=== PATIENT | female | born 1930 | race Caucasian/White ===

== ENCOUNTER 2018-12-22 14:16 | Inpatient (IN) | payer MEDICARE, OTHER ==
[~2018-12-22] VITALS: Ht 170.2 cm; Wt 62.6 kg
[2018-12-22] MEDS ORDERED: ASPI-605 PO (14:43)
[2018-12-22] MEDS ORDERED: CHOL100062 PO (14:43)
[2018-12-22] MEDS ORDERED: METO25TA3 PO (14:43)
[2018-12-22] MEDS ORDERED: DULO60CA45 PO (14:43)
[2018-12-22] MEDS ORDERED: MEMA14CA PO (14:43)
[2018-12-22 14:58] LABS: BASOPHILS # (AUTO) 0.1 K/uL (0.0-8.0); EOSINOPHILS # (AUTO) 0.3 K/uL (0.0-0.7); EOSINOPHILS % (AUTO) 3.8 % (0.0-7.0); HEMATOCRIT 35.1 % (31.2-41.9); HEMOGLOBIN 11.7 g/dL (10.9-14.3); LYMPHOCYTES # (AUTO) 1.3 K/uL (20.0-40.0); LYMPHOCYTES % (AUTO) 18.2 % (20.5-51.5); MEAN CORPUSCULAR HEMOGLOBIN 30.7 uug (24.7-32.8); MEAN CORPUSCULAR HGB CONC 33 g/dL (32.3-35.6); MEAN CORPUSCULAR VOLUME 92.4 fL (75.5-95.3); MONOCYTES # (AUTO) 1.1 K/uL (2.0-10.0); MONOCYTES % (AUTO) 15.1 % (0.0-11.0); NEUTROPHILS # (AUTO) 4.4 K/uL (1.8-8.9); NEUTROPHILS % (AUTO) 61.9 % (38.5-71.5); PLATELET COUNT (AUTO) 319 K/uL (179-408); RED BLOOD CELL COUNT(AUTO) 3.79 MIL/uL (3.63-4.92); WHITE BLOOD COUNT (AUTO) 7.1 K/uL (3.8-11.8)
--- NOTE | 2018-12-22 15:04 | NUR ---
PT IS IN ROOM #1A. DR LI EVALUATED THE PT.
[2018-12-22 15:07] LABS: CARBON DIOXIDE 27 mmol/L (21-32); CHLORIDE 105 mmol/L (98-107); CREATININE 1.5 mg/dL (0.6-1.3); GLUCOSE 87 mg/dL (74-106); POTASSIUM 3.7 mmol/L (3.5-5.1); UREA NITROGEN, BLOOD 33 mg/dL (7-18)
[2018-12-22 15:12] LABS: ALANINE AMINOTRANSFERASE 20 U/L (14-59); ALKALINE PHOSPHATASE 69 U/L (50-136); ASPARTATE AMINOTRANSFERASE 19 U/L (15-37); BILIRUBIN,DIRECT 0.2 mg/dL (0.0-0.2); BILIRUBIN,TOTAL 0.8 mg/dL (0.2-1.0); TOTAL PROTEIN, SERUM 6.7 g/dL (6.4-8.2)
[2018-12-22 15:13] LABS: ACETAMINOPHEN < 2.0 ug/mL (10-30)
[2018-12-22 15:15] LABS: ETHANOL < 3 MG/DL (0-0)
[2018-12-22 15:24] LABS: THYROID STIMULATING HORMONE 1.402 mIU/mL (0.358-3.740)
[2018-12-22 15:43] LABS: BAND % (MANUAL) 2 % (0-10); EOSINOPHILS % (MANUAL) 1 % (0-8); LYMPHOCYTES % (MANUAL) 19 % (20-40); MONOCYTES % (MANUAL) 15 % (2-10); NEUTROPHILS % (MANUAL) 63 % (42-75)
[2018-12-22 15:55] LABS: *BILIRUBIN,URIN NEGATIVE (NEGATIVE); *BLOOD, URINE NEGATIVE (NEGATIVE); *CLARITY,URINE CLEAR (CLEAR); *COLOR,URINE YELLOW (YELLOW); *KETONES,URINE NEGATIVE (NEGATIVE); *UROBILINOGEN,URINE 0.2 E.U./dl (NORMAL); LEUKOCYTE ESTERASE ,URINE NEGATIVE (NEGATIVE); NITRITE, URINE NEGATIVE (NEGATIVE); PH,URINE 5.5 (5.0-8.0); UGLUCOSE NEGATIVE (NEGATIVE)
[2018-12-22 16:01] LABS: *AMPHETAMINE, URINE NEGATIVE (NEGATIVE); *BARBITURATE, URINE NEGATIVE (NEGATIVE); *CANNABINOID, URINE NEGATIVE (NEGATIVE); *COCCAINE, URINE NEGATIVE (NEGATIVE); *OPIATE, URINE NEGATIVE (NEGATIVE); *PHENCYCLIDINE SCREEN,URINE NEGATIVE (NEGATIVE)
[2018-12-22 16:02] LABS: RBC,URINE 0-3 /HPF (0-3); WBC,URINE 0-3 /HPF (0-3)
[2018-12-22 16:03] LABS: MUCUS,URINE MODERATE /LPF (0-FEW)
[2018-12-22] MEDS ORDERED: IV NORMAL SALINE 500 ML BAG IV ONE (16:15)
--- NOTE | 2018-12-22 17:03 | NUR ---
Pt. admitted to TELE , under care of Dr. WEEKS Belongs List completed
--- NOTE | 2018-12-22 17:30 | NUR ---
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 PT WAS TRANSFERED TO ROOM #316.
[2018-12-22 17:48] VITALS: BP 108/51
--- NOTE | 2018-12-22 18:00 | NUR ---
Pt very agitated, hitting nurse, wont let us apply TELE monitor. Decreased environmental stimuli. Tele SNR 1 degree av block. VSS. IV on right AC. Pt close to nursing station for safety. Bed Alarm on.
--- NOTE | 2018-12-22 18:45 | NUR ---
Decreased environmental stimuli effective. Pt sleeping bed alarm on. Will give report to oncoming hs shift.
--- NOTE | 2018-12-22 19:10 | NUR ---
SPOKE WITH DAUGHTER HALLIE, PHONE NUMBER [phone]. SHE SAID PATIENT IS DNR.
[2018-12-22 20:00] VITALS: BP 134/78
--- NOTE | 2018-12-22 20:00 | NUR ---
Received patient laying comfortably in bed. No acute distress noted. Patient is asleep but easily aroused. A/O x 1. On room air. shelter assessment done. Skin intact. IVF infusing on the left AC. TELE SR at 75 with first degree AV block. Spoke to the daughter Rere who is the DPOA, she states that "she is a DNR". When asked if she could provide a copy of the POLST and she said "I will try and look for it", "we were moving from one place to another so things are a mess". Patient is extremely confuse so she cannot verify this. Safety initiated. Call light within reach. Will continue to monitor.
[2018-12-22] MEDS ORDERED: IV D5/ 0.9% NACL 1,000 ML IV PRN (20:15)
[2018-12-22] MEDS ORDERED: MEMANTINE HCL 5 MG TABLET PO SCH (21:00)
[2018-12-23] VITALS (7 sets, daily range): BP systolic 112–155; BP diastolic 55–72
--- NOTE | 2018-12-23 05:36 | NUR ---
No changes t/o shift. Patient slept t/o shift. No acute distress noted. TELE SR with first degree AV block. IVF infusing on the left AC. Good urine output. Vital signs stable. All meds given as ordered. All needs met. Safety and comfort measures maintained t/o shift.
[2018-12-23 06:52] LABS: BASOPHILS # (AUTO) 0.1 K/uL (0.0-8.0); BASOPHILS % (AUTO) 0.8 % (0.0-2.0); EOSINOPHILS # (AUTO) 0.3 K/uL (0.0-0.7); EOSINOPHILS % (AUTO) 4.1 % (0.0-7.0); HEMATOCRIT 35.2 % (31.2-41.9); HEMOGLOBIN 11.9 g/dL (10.9-14.3); LYMPHOCYTES # (AUTO) 1.3 K/uL (20.0-40.0); MEAN CORPUSCULAR HEMOGLOBIN 31.4 uug (24.7-32.8); MEAN CORPUSCULAR HGB CONC 34 g/dL (32.3-35.6); MEAN CORPUSCULAR VOLUME 92.8 fL (75.5-95.3); MONOCYTES # (AUTO) 0.8 K/uL (2.0-10.0); MONOCYTES % (AUTO) 11.3 % (0.0-11.0); NEUTROPHILS # (AUTO) 4.6 K/uL (1.8-8.9); NEUTROPHILS % (AUTO) 65.8 % (38.5-71.5); PLATELET COUNT (AUTO) 294 K/uL (179-408); RED BLOOD CELL COUNT(AUTO) 3.79 MIL/uL (3.63-4.92); WHITE BLOOD COUNT (AUTO) 7.1 K/uL (3.8-11.8)
[2018-12-23 07:10] LABS: THYROID STIMULATING HORMONE 1.055 mIU/mL (0.358-3.740)
[2018-12-23 07:28] LABS: CARBON DIOXIDE 24 mmol/L (21-32); CHLORIDE 110 mmol/L (98-107); CREATININE 1.1 mg/dL (0.6-1.3); GLUCOSE 90 mg/dL (74-106); POTASSIUM 3.6 mmol/L (3.5-5.1); UREA NITROGEN, BLOOD 25 mg/dL (7-18)
[2018-12-23] MEDS: CHOLECALCIFEROL 1,000 UNIT TABLET PO SCH ×2 (09:00→09:57)
[2018-12-23] MEDS: ASPIRIN 81 MG TAB.CHEW PO SCH ×2 (09:00→09:57)
[2018-12-23] MEDS: DULOXETINE 60 MG CAPSULE.DR PO SCH ×2 (09:00→09:56)
[2018-12-23] MEDS: MEMANTINE HCL 5 MG TABLET PO SCH ×3 (09:00→18:26)
[2018-12-23] MEDS: METOPROLOL SUCCINATE XL 25 MG TAB.SR.24H PO SCH ×2 (09:00→10:04)
[2018-12-23] MEDS ORDERED: QUETIAPINE FUMARATE 25 MG TABLET PO PRN (10:30)
[2018-12-23] MEDS ORDERED: QUETIAPINE FUMARATE 25 MG TABLET PO ONE (11:00)
[2018-12-23] MEDS ORDERED: MVI ADULT 10 ML VIAL=1 AMP 10 ML, THIAMINE HCL INJ 100 MG, FOLIC ACID 1 MG, MAGNESIUM S... IV ONE ×5 (12:00)
[2018-12-23] MEDS ORDERED: OLANZAPINE 10 MG VIAL IM ONE (14:30)
--- NOTE | 2018-12-23 14:38 | NUR ---
PATIENT LEFT THE BED, DURING AN EPISODE OF SEVERE AGITATION AND AGGRESSION. STAFF ENTERED THE ROOM AND FOUND THE PATIENT ON THE FLOOR NAKED AND VERBALLY ABUSIVE. SHE WAS PUNCHING AND KICKING STAFF AND WIELDING THE PHONE AT THE STAFF. ORDER FOR ZYPREXA 2.5 MG IM WAS OBTAINED. SECURITY WAS CALLED IN TO HELP. IM ZYPREXA WAS GIVEN IN THE LEFT DELTOID AT 1438.
--- NOTE | 2018-12-23 20:00 | NUR ---
Received patient sitting on edge of bed, awake agitated & combative hitting caregiver & staff. Trying to pull out her IV, patient is getting continuos IVF D5NS with MVI. Vital signs showed BP 119/72 HR 89 bpm, RR 20 O2Sat 100% on RA. Paged Dr. Crowley for orders.
[2018-12-23] MEDS ORDERED: ACETAMINOPHEN 325 MG TABLET PO PRN (20:15)
[2018-12-23] MEDS ORDERED: ONDANSETRON 4 MG/2 ML VIAL IV PRN (20:15)
[2018-12-23] MEDS ORDERED: MAGNESIUM HYDROXIDE 30 ML LIQUID UDC PO PRN (20:15)
--- NOTE | 2018-12-23 20:15 | NUR ---
Patient remains agitated & pulled out her IV line. Inserted new line on left forearm w/ [id number]. IVF maintained.
--- NOTE | 2018-12-23 20:29 | NUR ---
Dr. Crowley called back. Orders received.
[2018-12-23] MEDS: LORAZEPAM 2 MG/1 ML VIAL IV PRN ×2 (20:42→21:29)
--- NOTE | 2018-12-23 21:30 | NUR ---
Ativan 0.5 mg IVP adm. Patient placed on O2 2 L/NC. Will continue to monitor.
--- NOTE | 2018-12-23 21:50 | NUR ---
Bilateral hand soft mitten applied for patient's safety. Patient quiet at this time, resting comfortably. No sign of distress noted.
--- NOTE | 2018-12-23 22:09 | NUR ---
Patient sent down to CT for CT head w/o contrast. Patient resting comfortably no sign of distress.
--- NOTE | 2018-12-23 22:25 | NUR ---
Back from CT, S/P CT Chest without contrast. Patient awake calmer & responsive verbally. No sign of distress.
--- NOTE | 2018-12-24 | NUR ---
Asleep, 1:1 sitter in room. Bilateral hand soft mittens released for now.
[2018-12-24] MEDS: LORAZEPAM 2 MG/1 ML VIAL IV PRN (01:43)
--- NOTE | 2018-12-24 02:00 | NUR ---
Patient awake, agitated verbally abusive, hitting caregiver & staff. Attempting to jump out of bed & pulling lines. Patient stated "where's my baby". Placed back to bed, bilateral hand mittens re-applied. Ativan 0.5 mg IVP adm. Closely monitored.
--- NOTE | 2018-12-24 02:30 | NUR ---
Awake but calmer at this time talking to herself. No sign of distress. 1:1 sitter at bedside.
[2018-12-24 04:00] VITALS: BP 140/70
--- NOTE | 2018-12-24 07:03 | NUR ---
Bedbath provided today. Patient awake & cooperative at this time. Bilateral hand soft mittens released for now, circulation WNL. Vital signs are stable. Afebrile. Safety maintained 1:1 sitter in room.
--- NOTE | 2018-12-24 07:07 | NUR ---
Specimen for routine MRSA Surveillance test (L & R nares) sent to lab. Report given to STEVEN Gordillo.
[2018-12-24 07:29] LABS: BASOPHILS % (AUTO) 0.6 % (0.0-2.0); EOSINOPHILS # (AUTO) 0.2 K/uL (0.0-0.7); EOSINOPHILS % (AUTO) 2.9 % (0.0-7.0); HEMOGLOBIN 11.9 g/dL (10.9-14.3); LYMPHOCYTES # (AUTO) 1.4 K/uL (20.0-40.0); LYMPHOCYTES % (AUTO) 21.9 % (20.5-51.5); MEAN CORPUSCULAR HEMOGLOBIN 30.8 uug (24.7-32.8); MEAN CORPUSCULAR HGB CONC 33 g/dL (32.3-35.6); MEAN CORPUSCULAR VOLUME 93.3 fL (75.5-95.3); MONOCYTES # (AUTO) 0.8 K/uL (2.0-10.0); MONOCYTES % (AUTO) 12.2 % (0.0-11.0); NEUTROPHILS # (AUTO) 4.1 K/uL (1.8-8.9); NEUTROPHILS % (AUTO) 62.4 % (38.5-71.5); PLATELET COUNT (AUTO) 292 K/uL (179-408); RED BLOOD CELL COUNT(AUTO) 3.86 MIL/uL (3.63-4.92); WHITE BLOOD COUNT (AUTO) 6.5 K/uL (3.8-11.8)
[2018-12-24 07:35] LABS: ALANINE AMINOTRANSFERASE 18 U/L (14-59); ALKALINE PHOSPHATASE 61 U/L (50-136); ASPARTATE AMINOTRANSFERASE 18 U/L (15-37); BILIRUBIN,TOTAL 1.1 mg/dL (0.2-1.0); CARBON DIOXIDE 26 mmol/L (21-32); CHLORIDE 109 mmol/L (98-107); GLUCOSE 91 mg/dL (74-106); MAGNESIUM 2.1 mg/dL (1.8-2.4); PHOSPHOROUS 2.8 mg/dL (2.5-4.9); POTASSIUM 3.5 mmol/L (3.5-5.1); TOTAL PROTEIN, SERUM 6.4 g/dL (6.4-8.2); UREA NITROGEN, BLOOD 19 mg/dL (7-18)
[2018-12-24 08:18] VITALS: BP 156/81
[2018-12-24] MEDS: METOPROLOL SUCCINATE XL 25 MG TAB.SR.24H PO SCH (08:49)
[2018-12-24] MEDS: ASPIRIN 81 MG TAB.CHEW PO SCH (08:50)
[2018-12-24] MEDS: CHOLECALCIFEROL 1,000 UNIT TABLET PO SCH (08:50)
[2018-12-24] MEDS: MULTIVIT, IRON, MIN NO. 8, FA TABLET PO SCH (08:50)
[2018-12-24] MEDS: THIAMINE HCL 100 MG TABLET PO SCH (08:50)
[2018-12-24] MEDS: MEMANTINE HCL 5 MG TABLET PO SCH ×2 (08:50→16:22)
[2018-12-24] MEDS: DULOXETINE 60 MG CAPSULE.DR PO SCH (08:50)
[2018-12-24] MEDS: FOLIC ACID 1 MG TABLET PO SCH (08:50)
[2018-12-24] MEDS ORDERED: Medication Not On Formulary EA (Memantine HCl (Namenda Xr) 14 MG) PO SCH (09:00)
[2018-12-24] MEDS ORDERED: ASPIRIN EC 81 MG TABLET.DR PO SCH (09:00)
[2018-12-24] MEDS ORDERED: DULOXETINE 60 MG CAPSULE.DR PO SCH (09:00)
[2018-12-24] MEDS ORDERED: CHOLECALCIFEROL 1,000 UNIT TABLET PO SCH (09:00)
[2018-12-24] MEDS ORDERED: METOPROLOL SUCCINATE XL 25 MG TAB.SR.24H PO SCH (09:00)
[2018-12-24] MEDS ORDERED: CEFTRIAXONE 1 G VIAL IM SCH (12:00)
[2018-12-24] MEDS ORDERED: CEFTRIAXONE 1 G in IV DEXTROSE 5% 50 ML IV SCH (12:00)
[2018-12-24 12:33] VITALS: BP 156/81
[2018-12-24] MEDS ORDERED: LORAZEPAM 1 MG TABLET PO PRN (14:00)
[2018-12-24 20:15] VITALS: BP 114/63
[2018-12-24] MEDS: QUETIAPINE FUMARATE 25 MG TABLET PO SCH (21:30)
[2018-12-25 06:25] VITALS: BP 130/63
[2018-12-25] MEDS ORDERED: FOLI1TAB16 PO (07:08)
[2018-12-25] MEDS ORDERED: THIA100T13 PO (07:09)
[2018-12-25] MEDS ORDERED: QUET25TA PO (07:09)
[2018-12-25] MEDS: FOLIC ACID 1 MG TABLET PO SCH (09:15)
[2018-12-25] MEDS: THIAMINE HCL 100 MG TABLET PO SCH (09:15)
[2018-12-25] MEDS: CHOLECALCIFEROL 1,000 UNIT TABLET PO SCH (09:15)
[2018-12-25] MEDS: MULTIVIT, IRON, MIN NO. 8, FA TABLET PO SCH (09:15)
[2018-12-25] MEDS: METOPROLOL SUCCINATE XL 25 MG TAB.SR.24H PO SCH (09:15)
[2018-12-25] MEDS: ASPIRIN 81 MG TAB.CHEW PO SCH (09:15)
[2018-12-25] MEDS: DULOXETINE 60 MG CAPSULE.DR PO SCH (09:16)
[2018-12-25] MEDS: MEMANTINE HCL 5 MG TABLET PO SCH ×2 (09:16→16:30)
[2018-12-25 11:39] VITALS: BP 131/65
[2018-12-25 16:00] VITALS: BP 122/68
--- NOTE | 2018-12-25 18:31 | NUR ---
PATIENT LYING IN BED SLEEPING, EASILY AROUSABLE. BED IN LOW POSITION, LOCKED WITH CALL LIGHT IN REACH. SITTER AT BEDSIDE FOR SAFETY. NO DISTRESS NOTED. LEFT FOREARM IV ACCESS PATENT. 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
[2018-12-25 20:00] VITALS: BP 121/68
--- NOTE | 2018-12-25 20:00 | NUR ---
PATIENT ASLEEP. SITTER AT BEDSIDE. NO S/S OF PAIN OR DISCOMFORT. NO RESP. DISTRESS NOTED. CALL LIGHT IN REACH. ALL NEEDS ATTENDED. WILL CONTINUE TO MONITOR.
[2018-12-25] MEDS: QUETIAPINE FUMARATE 25 MG TABLET PO SCH (20:38)
[2018-12-26 06:05] VITALS: BP 125/66
[2018-12-26 07:47] VITALS: BP 117/60
[2018-12-26] MEDS: CHOLECALCIFEROL 1,000 UNIT TABLET PO SCH (08:17)
[2018-12-26] MEDS: THIAMINE HCL 100 MG TABLET PO SCH (08:17)
[2018-12-26] MEDS: DULOXETINE 60 MG CAPSULE.DR PO SCH (08:17)
[2018-12-26] MEDS: MEMANTINE HCL 5 MG TABLET PO SCH (08:17)
[2018-12-26] MEDS: ASPIRIN 81 MG TAB.CHEW PO SCH (08:17)
[2018-12-26 08:18] VITALS: BP 117/60
[2018-12-26] MEDS: METOPROLOL SUCCINATE XL 25 MG TAB.SR.24H PO SCH (08:18)
[2018-12-26] MEDS: FOLIC ACID 1 MG TABLET PO SCH (08:19)
[2018-12-26] MEDS: MULTIVIT, IRON, MIN NO. 8, FA TABLET PO SCH (08:19)
--- NOTE | 2018-12-26 14:39 | NUR ---
pt discharged to [facility]. family aware of dicharge and agrees with plan of care. pt iv removed. no skin issues noted with patient. pt continuest to be confused. family friend informed pt family that she will be transferred. belongings checked with famiy member. clothing was taken by family member. all other belongings sent with patient. report given to receiving nurse. no signs of complication noted.
== END 2018-12-26 14:30 | DRG 682 ==
LOC: ER 14:16 → TELE3 17:13 → MED 12-23 08:42 → MEDSURG3 12-23 08:45
PROVIDERS: ADMIT Internal Medicine; ATTEND Internal Medicine
DX: N17.0 Acute kidney failure with tubular necrosis (principal); G92 Toxic encephalopathy; F02.81 Dementia in other diseases classified elsewhere, unspecified severity, with behavioral disturbance; J98.11 Atelectasis; G30.9 Alzheimer's disease, unspecified; Z91.83 Wandering in diseases classified elsewhere; I44.0 Atrioventricular block, first degree; I45.10 Unspecified right bundle-branch block; E86.0 Dehydration; N18.9 Chronic kidney disease, unspecified; H91.10 Presbycusis, unspecified ear; F10.20 Alcohol dependence, uncomplicated; Y90.0 Blood alcohol level of less than 20 mg/100 ml; G62.9 Polyneuropathy, unspecified; Z86.73 Personal history of transient ischemic attack (TIA), and cerebral infarction without residual deficits; E78.5 Hyperlipidemia, unspecified; E53.8 Deficiency of other specified B group vitamins; I67.2 Cerebral atherosclerosis; I70.0 Atherosclerosis of aorta; Z79.899 Other long term (current) drug therapy; F39 Unspecified mood [affective] disorder; R32 Unspecified urinary incontinence; R94.2 Abnormal results of pulmonary function studies; F17.200 Nicotine dependence, unspecified, uncomplicated
CPT/HCPCS: 36415; 70030-TC; 70450; 71045; 71250; 80307; 83735; 84100; 84443; 85025; 85730; 87086; 93005; 97530; A4663; G0378; G0480; G0480-TC; J0696; J2060; J2358; J3411; J3475; J3490; J7042; J7060